=== PATIENT | female | born 1960 | race Caucasian/White ===

== ENCOUNTER 2016-07-11 03:37 | Inpatient (IN) ==
[2016-07-11] MEDS ORDERED: LACTATED RINGERS 1,000 ML IV ONE (03:58)
[2016-07-11] MEDS ORDERED: HYDROmorphone 2 MG/1 ML VIAL IV STA (03:58)
[2016-07-11] MEDS ORDERED: ONDANSETRON 4 MG/2 ML VIAL IV STA (03:58)
[2016-07-11] MEDS ORDERED: ONDANSETRON 4 MG/2 ML VIAL ONE ×2 (04:10→07:04)
[2016-07-11] MEDS ORDERED: HYDROmorphone 2 MG/1 ML VIAL ONE (04:10)
[2016-07-11 04:50] LABS: Basophils % 0.1 % (0.0-0.8); Eosinophils # 0.1 10*3/uL (0.0-0.87); Eosinophils % 0.6 % (0.00-10.9); Hematocrit 38.1 VOL% (35.7-47.0); Hemoglobin 13.1 GM/DL (12.0-16.0); Immature Granulocytes % 0.4 %; Immature Granulocytes Absolute 0.06 #; Lymphocytes # 1.3 10*3/uL (1.4-4.0); Mean Corpuscular HGB Conc 34.4 GM/DL (32-36); Mean Corpuscular Hemoglobin 34 PG (27-34); Mean Corpuscular Volume 97.9 FL (87-102); Mean Platelet Volume 10.4 FL (9.6-12.0); Monocytes % 6.3 % (1.7-12.7); Neutrophils # 13.2 10*3/uL (1.4-7.4); Neutrophils % 84.6 % (38.7-73.9); Platelet Count 211 T/CUMM (130-400); Red Blood Count 3.89 MC/CUMM (3.8-5.5); Red Cell Distribution Width 12.5 % (9.3-17.3); White Blood Count 15.6 T/CUMM (4-12)
[2016-07-11 05:08] LABS: Apearance,Urine CLEAR (Clear); Bacteria,Urine Occasional /HPF (Few); Bilirubin,Urine Negative (Negative); Blood, Urine Negative (Negative); Glucose,Urine (UA) Negative (Negative); Ketones,Urine Negative (Negative); Mucus,Urine Occasional /LPF (Occasional); Nitrite,Urine Negative (Negative); Protein,Urine Negative; Squamous Epithelial Cell,Urine Occasional /HPF (0-10); Urine Color Straw (Yellow); Urine Specific Gravity 1.005 (1.001-1.035); Urine Urobilinogen < 2.0 EU/DL (0.2-1.0); WBC,Urine <1 /HPF (0-6)
[2016-07-11 05:11] LABS: Albumin 3.6 G/DL (3.4-5.0); Bilirubin,Direct 0.2 MG/DL (0.0-0.20); Bilirubin,Total 0.6 MG/DL (0.2-1.0); Calcium 9.1 MG/DL (8.5-10.1); Osmolality,Calculated 283.1 MOS/KG (273-304); Potassium 4.3 MMOL/L (3.5-5.1); Total Protein 6.4 G/DL (6.4-8.3)
[2016-07-11] MEDS ORDERED: PIPERACILLIN/TAZOBACTAM 3,375 MG in SODIUM CHLORIDE 0.9% 100 ML IV STA (05:35)
--- NOTE | 2016-07-11 05:40 | Emergency Department Note ---
IMeaghan Emily, am scribing for, and in the presence of, Taran Delgado MD 04:01. Danny Conrad Hans, MD, personally performed the services described in this documentation, ascribed by Rimma Harding in my presence, and it is both accurate and complete . Arrival - Arrival Chief Complaint: Abdominal / Flank Pain Stated Complaint: pain right side -nausea ED Nursing Triage Note: C/C RLQ abd pain, N/V started yesterday Mode of Arrival: Ambulatory Limitations: No Limitations Source: Patient Time Seen by Provider: 07/11/16 03:49 - History of Present Illness HPI Narrative: Pt is a 55 y/o female who came to ED with c/o RLQ with N/V that started yesterday after dinner. Pt notes she had diarrhea yesterday but none today. Pt reports having a shooting pain in right shoulder, as well. Pt admits to not ever having this pain. She states the pain was waking her from sleep. Onset (ago): day(s) Consistency: constant Severity: mild, moderate Severity scale (1-10): 4 Quality: aching Allergies/Adverse Reactions: Allergies Allergy/AdvReac Type Severity Reaction Status Date / Time No Known Allergies Allergy Verified 07/11/16 03:44 Review of System - Review of System 12 point system: reviewed and no additional remarkable complaints except as stated - Review of System Constitutional: Absent: chills, fever Respiratory: Absent: respiratory distress Cardiovascular: Absent: chest pain Gastrointestinal: Present: abdominal pain (RLQ), nausea, vomiting, diarrhea Musculoskeletal: Absent: arm pain, back pain, leg pain, neck pain Skin: Absent: rash Medical,Surgical,& Family Hx - Surgical History Orthopedic Surgeries: Surgical HX of;: Total Knee Replacement (left) - Social History Smoking Status: Former smoker Frequency of Alcohol Use: Occasionally Type of Drug Use: None Exam Vital Signs: Vital Signs Temperature 98.1 F 07/11/16 04:16 Pulse Rate 108 H 07/11/16 04:16 Respiratory Rate 20 07/11/16 04:16 Blood Pressure 139/90 07/11/16 04:16 O2 Sat by Pulse Oximetry 96 07/11/16 04:15 - General General appearance: alert, in no apparent distress - Head Head exam: Present: atraumatic, normocephalic - Eye Eye exam: Present: PERRL, EOMI - ENT ENT exam: Present: mucous membranes moist. Absent: mucous membranes dry - Neck Neck exam: Present: full ROM. Absent: tenderness - Chest Chest inspection: Present: symmetric chest wall rise. Absent: tenderness - Respiratory Respiratory exam: Present: normal lung sounds bilaterally. Absent: respiratory distress - Cardiovascular Cardiovascular exam: Present: regular rate, normal rhythm, normal heart sounds - Abdominal Exam Abdominal exam: Present: soft, tenderness (in both RUQ and RLQ; mostly in lower) . Absent: distention, guarding, rebound - Extremities Exam Extremities exam: Present: full ROM. Absent: tenderness, pedal edema - Back Exam Back exam: Present: full ROM. Absent: tenderness - Neurological Exam Neurological exam: Present: alert, oriented X3, CN II-XII intact. Absent: motor sensory deficit - Psychiatric Psychiatric exam: Present: normal affect, normal mood - Skin Skin exam: Present: warm, dry Course Course Narrative: This patient was evaluated with lab work and urinalysis and CT scan of abdomen and pelvis which demonstrated a hiatal hernia without acute complications and also acute appendicitis with thickening and stranding around the appendix with no evidence of perforation on CT scan. Her white blood cell count was elevated at 15,000. She was treated with IV fluids pain medication and Zofran I discussed her care with Dr. Mcconnell who will come and see her in the ER shortly. She will be treated with IV Zosyn in the meantime. Results - Labs CBC & BMP: 07/11/16 04:12 07/11/16 04:12 Lab Results: I have reviewed the patients labs Labs: Laboratory Tests 07/11/16 04:12 WBC 15.6 H Neut % (Auto) 84.6 H Lymph % (Auto) 8.0 L Neut # (Auto) 13.2 H Lymph # (Auto) 1.3 L Lea # (Auto) 1.0 H Disposition Clinical Impression: Acute appendicitis Case discussed with: patient Disposition: Still a Patient Condition: Stable Time of Disposition: 05:40
[2016-07-11] MEDS ORDERED: PIPERACILLIN/TAZOBACTAM 3,375 MG VIAL IV ONE (05:42)
--- NOTE | 2016-07-11 06:24 | General Surg History&Physical ---
Assessment and Plan (1) Acute appendicitis Status: Acute Assessment and plan: Impression: Acute appendicitis Plan: I reviewed the CT images and there is a dilated appendix with surrounding inflammatory change. The final report is not back yet. Patient is getting antibiotics. Discussed laparoscopic appendectomy and how the procedures performed and anticipated recovery. The risk of the procedure including bleeding, infection, damage to surrounding structures, need for further surgery , conversion to an open procedure, leaking at the staple line were all discussed in detail and she would like to proceed. Current Visit: Yes History of Present Illness Chief complaint: abdominal pain History of present illness: Ms. Hudson is a 55 year old female with approximately 24-hour history of abdominal pain. It intensified throughout the night. Initially it was bandlike across the abdomen and now has migrated to the right lower quadrant. She's had nausea and vomiting associated with it. She denies fever. Other medical history is that of a moderately symptomatic hiatal hernia with reflux and depression. Prior surgery includes hysterectomy and total knee replacement. Patient has never had any problems with anesthesia. She denies any chest pain or shortness of breath. Home Medications Medication Instructions Recorded Confirmed Type No Known Home Medications [No 07/11/16 07/11/16 History Known Home Medications] Allergies Allergy/AdvReac Type Severity Reaction Status Date / Time No Known Allergies Allergy Verified 07/11/16 03:44 Medical,Surgical,& Family Hx - Medical History Medical History: noncontributory - Surgical History Orthopedic Surgeries: Surgical HX of;: Total Knee Replacement (left) - Social History Smoking Status: Former smoker Frequency of Alcohol Use: Occasionally Type of Drug Use: None Exam - Constitutional Vitals: Period Temp Pulse Resp BP Sys/Cotter Pulse Ox Last 24 Hr 98.1 F-98.1 F 73-108 18-20 112-139/74-90 96-100 General appearance: no acute distress - Head Head exam: Present: normocephalic - Neck Neck exam: Present: normal inspection - Respiratory Respiratory exam: Present: clear to auscultation bilaterally - Cardiovascular Cardiovascular exam: Present: RRR - GI/Abdominal GI/Abdominal exam: Present: soft (tender to palpation in the right lower quadrant. No rebound or Rovsing sign.) - Extremities Exam Extremities exam: Present: normal inspection - Back Exam Back exam: Present: normal inspection - Neurological Exam Neurological exam: Present: alert, oriented X3 Speech: Present: normal - Skin Skin exam: Present: normal color 12 point system: reviewed and no additional remarkable complaints except as stated Results - Labs CBC & BMP: 07/11/16 04:12 07/11/16 04:12 Lab Results: I have reviewed the past 24 hour labs
[2016-07-11] MEDS ORDERED: ONDANSETRON 4 MG/2 ML VIAL IV PRN (06:28)
[2016-07-11] MEDS ORDERED: MORPHINE 2 MG/1 ML SYRINGE IV PRN (06:28)
[2016-07-11] MEDS ORDERED: ACETAMINOPHEN 325 MG TABLET PO PRN (06:28)
[2016-07-11] MEDS ORDERED: TISSUE ADHESIVE 1 EACH APPLICATOR TOP ONE (06:40)
[2016-07-11] MEDS ORDERED: LIDOCAINE 2%/EPI 20 ML VIAL ONE (06:41)
[2016-07-11] MEDS ORDERED: BUPIVACAINE MPF 0.25% /EPI 30 ML VIAL ONE (06:41)
--- NOTE | 2016-07-11 06:46 | CT Report ---
CT abdomen pelvis w con Indication: Right lower quadrant abdominal pain Comparison: None. Technique: CT of the abdomen and pelvis was performed following administration of intravenous contrast. Coronal and sagittal reformatted images were additionally created and submitted for review. The total DLP is 1497 mGy*cm. Dose reduction: This CT exam was performed using one or more of the following dose reduction techniques: Automated exposure control, automated adjustment of the mA and/or KV according to patient size, or use of iterative reconstruction technique. Findings: Very minimal posterior basilar dependent atelectatic changes are noted bilaterally. Lung bases are otherwise clear. There is no pleural or pericardial effusion. ABDOMEN: Liver/Gallbladder: No abnormal enhancing hepatic lesions. Portal vein is patent. No biliary ductal dilatation or gallstones. Spleen: No acute findings. Pancreas: No acute findings. Adrenals: Within normal limits in appearance. Kidneys: Both kidneys enhance symmetrically. There is no evidence of hydronephrosis. There is excretion of contrast from both kidneys on delayed images. Bowel/mesentery: Focal inflammatory changes are noted within the right lower quadrant with mild dilatation of the appendix measuring 8 mm and periappendiceal fat stranding, most consistent with acute appendicitis changes. There is no suggestion of periappendiceal abscess or free air. No appendicolith is visualized. Small bowel is nondilated. There is no mesenteric adenopathy. There is stool throughout the colon which is otherwise normal caliber. A few descending diverticula are noted. There is no CT evidence of acute diverticulitis. A moderate to large size hiatal hernia is noted. Retroperitoneum: No evidence of aortic aneurysm or significant retroperitoneal adenopathy. PELVIS: No free fluid. No adenopathy. Bladder appears unremarkable for degree of distention. There has been a prior hysterectomy. BONES: No acute or suspicious osseous abnormalities are identified. IMPRESSION: Findings are most consistent with an acute uncomplicated appendicitis. Preliminary report by [employer]. 07/11/2016 6:23 AM PROCEDURE INTERPRETED AT [facility] DEPARTMENT OF RADIOLOGY Final Report Signed by: Agustin Aparicio
[2016-07-11] MEDS ORDERED: LIDOCAINE 2% 5 ML VIAL ONE (07:04)
[2016-07-11] MEDS ORDERED: PROPOFOL 200 MG/20 ML VIAL IV ONE (07:04)
[2016-07-11] MEDS ORDERED: ROCURONIUM 100 MG/10 ML VIAL IV ONE (07:04)
[2016-07-11] MEDS ORDERED: GLYCOPYRROLATE 0.4 MG/2 ML VIAL ONE (07:04)
[2016-07-11] MEDS ORDERED: NEOSTIGMINE 10 MG/10 ML VIAL ONE (07:04)
[2016-07-11] MEDS ORDERED: SUCCINYLCHOLINE 200 MG/10 ML VIAL ONE (07:04)
[2016-07-11] MEDS ORDERED: DEXAMETHASONE 10 MG/1 ML VIAL ONE (07:04)
[2016-07-11] MEDS ORDERED: KETOROLAC 30 MG/1 ML VIAL ONE (07:04)
--- NOTE | 2016-07-11 08:11 | Operative Note ---
Date of procedure: 07/11/16 Pre-op diagnosis: acute appendicitis Post-op diagnosis: same Procedure: Procedure performed: Laparoscopic appendectomy Procedure in detail: After informed consent was obtained, the patient was taken operating suite and laid supine on operating table. After general anesthesia was induced a Menard cath was placed and the abdomen was prepped and draped in usual sterile fashion. After procedural pause local anesthetic and straighten the skin and subcutaneous tissue just above the umbilicus. Incision made and dissection carried down through subcutaneous cutaneous tissue. The fascia identified and grasped with Vanessa's and elevated. Fascial incision was made. Abdominal cavity was entered bluntly. Finger sweep revealed no adhesions. Davidson trocar placed under direct visualization. Pneumoperitoneum achieved. Camera inserted and bowel mesentery inspected and found be free of any violation. Next the patient was placed in reverse Trendelenburg position rotated to the left. 5 mm suprapubic and left lower quadrant trochars were placed under visualization. Camera moved to the left lower quadrant. The right lower quadrant the appendix was identified. It was mildly adherent to the cecal wall. It was bluntly dissected off the cecal wall. It was mildly enlarged and appeared inflamed. A window was created at the base of the appendix. The appendiceal base was then transected using a DEL stapling device with a vascular load. The mesoappendix was transected in the same fashion. The appendix was placed in an Endo Catch sac and removed through the Davidson trocar site. Pneumoperitoneum reachieved. The right lower quadrant irrigated and suction. Staple lines inspected found be intact no leakage of sanguinous or succus-appearing fluid. There was excellent hemostasis and the trochars were removed as the abdomen desufflated. Fascia at the Davidson trocar site closed using 0 Vicryl [id number] interrupted suture. Wounds were irrigated and suction. This. Sterile dressings applied. Patient was extubated and taken recovery room in stable condition. All lap and needle counts correct at the end of the case. Anesthesia: GETA Surgeon / Physician: Merrill Matthew Estimated blood loss: other (less than 10 mL) Specimens: other (appendix) Condition: stable Disposition: PACU Results - Labs CBC & BMP: 07/11/16 04:12 07/11/16 04:12 Discharge Plan - Discharge Medications No Action No Known Home Medications [No Known Home Medications] - Follow Up or Referral - Forms/Instructions
--- NOTE | 2016-07-11 08:20 | Anesthesia ---
Anesthesia Post OP - Post Ansesthetic Evaluation Patient seen in post op: Yes Resp: within normal limits CV: within normal limits Mental: within normal limits Temp: within normal limits [id number]: within normal limits Nausea and Vomiting: within normal limits Pain: within normal limits
[2016-07-11] MEDS ORDERED: MIDAZOLAM 2 MG/2 ML VIAL ONE (08:22)
[2016-07-11] MEDS ORDERED: SEVOFLURANE 1 UNIT/15 MINUTE INH ONE (08:22)
[2016-07-11] MEDS: LACTATED RINGERS 1,000 ML IV SCH ×2 (08:22→12:20)
[2016-07-11] MEDS ORDERED: fentaNYL 100 MCG/2 ML VIAL ONE (08:22)
[2016-07-11] MEDS: PANTOPRAZOLE 40 MG TABLET PO SCH (12:18)
[2016-07-11] MEDS: PIPERACILLIN/TAZOBACTAM 3,375 MG in SODIUM CHLORIDE 0.9% 100 ML IV SCH ×2 (14:32→22:16)
[2016-07-11] MEDS ORDERED: PHENOL 1.4% THROAT SPRAY 177 ML BOTTLE PO PRN (22:39)
--- NOTE | 2016-07-12 04:33 | Discharge Summary ---
Hospital Course - Hospital Course Hospital Course: This patient was taken to the operating room by Dr. Mcconnell for a laparoscopic appendectomy for acute appendicitis on 07/11/2016. She did well postoperatively and was afebrile with good pain control and tolerated her diet. She was discharged home on postoperative day [address] Mcconnell 2 weeks after discharge. Specialty Discharge - Follow Up or Referrals Follow up with: Merrill Matthew MD [Physician] - Discharge Plan - Discharge Data Disposition: Disch To Home/Self Care Condition at Discharge: Stable Discharge Diet: advance to your usual diet Activity: no lifting Hygiene: may shower Weight Bearing at Discharge: weight bear as tolerated Driving: not until seen by doctor Contact your physician if you experience:: fever over 101, Difficulty voiding, Redness or swelling, Nausea/Vomiting, Shortness of breath, Bleeding, pain uncontrolled by pain medications Wound / Dressing Care Instructions: It is okay to remove the outer dressings and start showering tomorrow. That would be on Saturday. Do not submerge the incisions underwater. - Discharge Medications New HYDROcodone/ACETAMIN 7.5-325 [Bosque 7.5-325] 1 tablet PO Q4H PRN #45 tablet PRN Reason: Pain Moderate (4-7) Continue Desvenlafaxine [Pristiq] 50 mg PO DAILY - Follow Up or Referral Follow Up: Merrill Matthew MD [Physician] - 2 Weeks - Forms/Instructions Exam - Constitutional Vitals: Period Temp Pulse Resp BP Sys/Cotter Pulse Ox Last 24 Hr 97.6 F-98.8 F 62-113 14-20 97-134/62-85 93-100 General appearance: no acute distress, over weight - Head Head exam: Present: normal inspection, normocephalic - Eye Eye exam: Present: EOMI Pupils: Present: ROBERTA - ENT ENT exam: Present: normal exam - Neck Neck exam: Present: normal inspection - Respiratory Respiratory exam: Present: clear to auscultation bilaterally. Absent: accessory muscle use, chest wall tenderness - Cardiovascular Cardiovascular exam: Present: regular rate and rhythm. Absent: systolic murmur , tachycardia - GI/Abdominal GI/Abdominal exam: Present: normal bowel sounds, tenderness (Expected postoperative tenderness with clean dressings), soft. Absent: rebound - Extremities Exam Extremities exam: Present: normal inspection, normal capillary refill - Back Exam Back exam: Present: normal inspection - Neurological Exam Neurological exam: Present: alert, oriented X3 - Psychiatric Psychiatric exam: Present: normal affect, normal mood - Skin Skin exam: Present: normal color, warm DS: Provider Date of admission: 07/11/16 06:28 Primary care physician: . No PCP Attending physician on admission: Merrill Matthew MD Consults: 07/11/16 08:29 Consult to Pharmacy [CONS] Routine Reason for Pharmacy Consult: Adjust Meds Renal Funct Discharging clinician: Taran Delgado MD Expected date of discharge: 07/12/16
[2016-07-12] MEDS: PIPERACILLIN/TAZOBACTAM 3,375 MG in SODIUM CHLORIDE 0.9% 100 ML IV SCH (06:57)
[2016-07-12 08:22] VITALS: BP 105/62
[2016-07-12] MEDS: PANTOPRAZOLE 40 MG TABLET PO SCH (08:47)
--- NOTE | 2016-07-12 10:38 | Pathology Report from [facility] ---
ACCESSION # : [id number] PATIENT NAME : Beto Hudson ORDERING DR : Merrill Matthew MD CLINICAL HX: Acute appendicitis POST-OP DX: Same SPECIMEN INFO: Appendix GROSS DESCRIPTION: Received in formalin labeled "BETO HUDSON" is an appendix measuring 8.0 cm in length and up to 0.9 cm in greatest diameter. The serosa is red aguilar with exudate noted. The lumen is hemorrhagic and patent with no fecaliths or perforations seen. Paleologist sections are submitted in one cassette. DIAGNOSIS FOR BETO HUDSON: APPENDIX, APPENDECTOMY: Acute suppurative appendicitis. SERVICE DATE: 07/11/2016 REPORT DATE: 07/12/2016 PATHOLOGIST: Jitendra Dexter M.D. [facility]
== END 2016-07-12 11:15 | disposition home or self-care (01) | DRG 343 ==
LOC: N.ED 03:37 → N.EDINP 06:28 → N.3E 08:19
PROVIDERS: ADMIT Surgery; ATTEND Surgery